=== PATIENT | female | born 1990 | race African-American/Black ===

== ENCOUNTER 2016-11-08 15:36 | Emergency (ER) | payer OTHER ==
[2016-11-08 15:57] VITALS: BP 118/74; PULSE 92; TEMP 98.4; BMI 30.2
--- NOTE | 2016-11-08 17:01 | PDOC ---
History of Present Illness - General Chief Complaint: Cold Symptoms Stated Complaint: COLD, CONGESTION Time Seen by Provider: 11/08/16 16:22 History Source: Patient Exam Limitations: No Limitations - History of Present Illness Initial Comments: 11/08/16 16:56 CC cough and congesion x 2 days; with 2 toddler sons who got her sick; no fever Severity: reports: mild Possible Cause: Yes: unknown cause (hx asthma wo meds at home) Associated Symptoms: reports: cough, nasal congestion, nasal drainage. denies: lightheadedness, muscle aches, sore throat, wheezing Past History - Past Medical History Allergies/Adverse Reactions: Allergies Allergy/AdvReac Type Severity Reaction Status Date / Time No Known Drug Allergies Allergy Verified 11/08/16 15:45 fresh fruit Allergy itchy Uncoded 11/08/16 15:45 throat Home Medications: Ambulatory Orders NK [No Known Home Medication] 12/23/15 Anemia: No Asthma: Yes Cancer: No Cardiac Disorders: No CVA: No COPD: No CHF: No Dementia: No Diabetes: No GI Disorders: Yes (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) Disorders: No HTN: No Hypercholesterolemia: No Liver Disease: No Suicide Attempt (Hx): No Seizures: No Thyroid Disease: No - Surgical History Abdominal Surgery: No Appendectomy: No Cardiac Surgery: No Cholecystectomy: No Lung Surgery: No Neurologic Surgery: No Orthopedic Surgery: No - Reproductive History (#): 3 Para: 1 Cervical CA: No Dysfunctional Uterine Bleeding: No Ectopic : No Endometrial CA: No Polycystic Ovaries: No Therapeutic (s) & number: No Tubal Ligation: No Spontaneous : 1 - Immunization History Td Vaccination: Yes Immunization Up to Date: Yes - Psycho/Social/Smoking Cessation Hx Anxiety: No Suicidal Ideation: No Smoking Status: Yes Smoking History: Current every day smoker Have you smoked in the past 12 months: Yes Number of Cigarettes Smoked Daily: 2 If you are a former smoker, when did you quit?: 07/2014 Information on smoking cessation initiated: No Hx Alcohol Use: No Drug/Substance Use Hx: No Substance Use Type: None Hx Substance Use Treatment: No Review of Systems - Review of Systems Constitutional: Yes: Symptoms Reported. No: Chills, Fever, Malaise HEENTM: Yes: Nose Congestion. No: Symptoms Reported, Throat Swelling Respiratory: Yes: Cough, Wheezing. No: SOB with Exertion, Stridor Cardiac (ROS): No: Symptoms Reported ABD/GI: No: Symptoms Reported : No: Symptoms Reported Musculoskeletal: No: Symptoms Reported Integumentary: No: Symptoms Reported Neurological: No: Symptoms reported Endocrine: No: Symptoms Reported *Physical Exam - Vital Signs Last Vital Signs Temp Pulse Resp BP Pulse Ox 98.4 F 92 H 18 118/74 98 11/08/16 15:40 11/08/16 15:40 11/08/16 15:40 11/08/16 15:40 11/08/16 15:40 - Physical Exam General Appearance: Yes: Appropriately Dressed. No: Apparent Distress HEENT: negative: TMs Normal, Pharynx Normal, Tonsillar Erythema, TM Bulging, TM Dull, TM Erythema Neck: positive: Supple. negative: Tender, Rigid, Lymphadenopathy (R), Lymphadenopathy (L) Respiratory/Chest: positive: Lungs Clear. negative: Accessory Muscle Use, Stridor, Wheezing Cardiovascular: positive: Regular Rhythm, Regular Rate, Murmur Medical Decision Making - Medical Decision Making 11/08/16 16:59 will prescribe albuterol for home; otherwise pt needs no meds *DC/Admit/Observation/Transfer Diagnosis at time of Disposition: History of asthma, Acute upper respiratory infection - Discharge Dispostion Disposition: HOME Condition at time of disposition: Stable Admit: No - Patient Instructions Additional Instructions: see local MD as needed; use albuterol as needed
== END 2016-11-08 17:07 | disposition home or self-care (01) ==
LOC: JERFT 15:36 → JER 15:36 → JERFT 17:07
DX: J06.9 Acute upper respiratory infection, unspecified (principal); J45.909 Unspecified asthma, uncomplicated
CPT/HCPCS: 99281-25

== ENCOUNTER 2017-06-30 14:10 | Emergency (ER) | payer OTHER ==
[2017-06-30 14:14] VITALS: BP 140/72; PULSE 95; TEMP 98.1; BMI 30.7
[2017-06-30] MEDS ORDERED: SULFAMETHOXAZOLE/TRIMETHOPRIM 800MG/160MG D.S. TABLET PO ONE (15:15)
[2017-06-30] MEDS ORDERED: SULFAMETHOXAZOLE/TRIMETHOPRIM 800MG/160MG D.S. TABLET ONE (15:18)
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
== END 2017-06-30 15:53 | disposition home or self-care (01) ==
LOC: JERFT 14:10
DX: T25.221A Burn of second degree of right foot, initial encounter (principal); X10.1XXA Contact with hot food, initial encounter; Y93.89 Activity, other specified; Y92.9 Unspecified place or not applicable; L03.031 Cellulitis of right toe
CPT/HCPCS: 99281-25

== ENCOUNTER 2017-10-07 11:10 | Emergency (ER) | payer OTHER ==
[2017-10-07 11:25] VITALS: BP 113/62; PULSE 77; TEMP 98; BMI 30.4
[2017-10-07] MEDS ORDERED: ALBUTEROL SO4 2.5/IPRATROPIUM 0.5 INH SOL 3 ML VIAL.NEB. NEB ONE ×2 (12:01→12:03)
--- NOTE | 2017-10-07 12:07 | PDOC ---
History of Present Illness - General Chief Complaint: Respiratory Stated Complaint: COUGH Time Seen by Provider: 10/07/17 11:41 History Source: Patient Exam Limitations: No Limitations - History of Present Illness Initial Comments: 10/07/17 12:06 My chief complaint: Productive cough, wheezing, nasal congestion History of present illness: She is a 27-year-old female with a history of asthma here today complaining of her duct of yellowish phlegm 2-3 days. Patient reports having some wheezing intermittently patient use albuterol pump once. Patient denies any shortness of breath presently. Patient also reports having slight sore throat. Patient denies any nasal congestion, shortness of breath presently or diarrhea or vomiting or fever. Patient denies any chance of . Patient's 2 children are sick with similar symptoms. Patient has never been hospitalized due to her asthma. Patient is not up-to-date within influenza vaccine. 10/07/17 19:03 Timing/Duration: intermittent (for 2-3 days ) Severity: mild Associated Symptoms: reports: cough (productive yellowish), other (wheezing, sob ) Past History - Past Medical History Allergies/Adverse Reactions: Allergies Allergy/AdvReac Type Severity Reaction Status Date / Time No Known Drug Allergies Allergy Verified 10/07/17 11:25 fresh fruit Allergy itchy Uncoded 10/07/17 11:25 throat Home Medications: Ambulatory Orders Albuterol Sulfate Inhaler - [Ventolin HFA Inhaler -] 2 inh PO Q4H PRN #1 inh MDD 6 10/07/17 Guaifenesin Dm [Mucinex Dm -] 2 each PO Q12H PRN #10 tab.er.12h 10/07/17 Anemia: No Asthma: Yes Cancer: No Cardiac Disorders: No CVA: No COPD: No CHF: No Dementia: No Diabetes: No GI Disorders: Yes (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) Disorders: No HTN: No Hypercholesterolemia: No Liver Disease: No Seizures: No Thyroid Disease: No Other medical history: MRSA FOOT - Surgical History Abdominal Surgery: No Appendectomy: No Cardiac Surgery: No Cholecystectomy: No Lung Surgery: No Neurologic Surgery: No Orthopedic Surgery: No - Reproductive History (#): 3 Para: 1 Cervical CA: No Dysfunctional Uterine Bleeding: No Ectopic : No Endometrial CA: No Polycystic Ovaries: No Therapeutic (s) & number: No Tubal Ligation: No Spontaneous : 1 - Immunization History Td Vaccination: Yes Immunization Up to Date: Yes - Suicide/Smoking/Psychosocial Hx Smoking Status: Yes Smoking History: Never smoked Have you smoked in the past 12 months: Yes Number of Cigarettes Smoked Daily: 5 If you are a former smoker, when did you quit?: 07/2014 Information on smoking cessation initiated: No Hx Alcohol Use: Yes (OCCASIONALLY) Drug/Substance Use Hx: Yes Substance Use Type: None Hx Substance Use Treatment: No Review of Systems - Review of Systems Able to Perform ROS?: Yes Constitutional: No: Symptoms Reported HEENTM: Yes: Nose Congestion Respiratory: Yes: Shortness of Breath, Wheezing, Productive cough (yellowish productive ). No: SOB with Exertion, SOB at Rest, Stridor Cardiac (ROS): No: Symptoms Reported ABD/GI: No: Symptoms Reported : No: Symptoms Reported Musculoskeletal: No: Symptoms Reported Integumentary: No: Symptoms Reported *Physical Exam - Vital Signs Last Vital Signs Temp Pulse Resp BP Pulse Ox 98.0 F 77 18 113/62 100 10/07/17 11:23 10/07/17 11:23 10/07/17 11:23 10/07/17 11:23 10/07/17 11:23 - Physical Exam General Appearance: Yes: Appropriately Dressed HEENT: positive: Normal ENT Inspection Neck: negative: Lymphadenopathy (R), Lymphadenopathy (L) Respiratory/Chest: positive: Wheezing (diffuse b/l expiratory ). negative: Chest Tender, Respiratory Distress, Accessory Muscle Use, Labored Respiration, Rapid RR Cardiovascular: positive: Regular Rhythm, Regular Rate, S1, S2 Integumentary: positive: Normal Color Neurologic: positive: Fully Oriented, Alert, Normal Response, Responsive Medical Decision Making - Medical Decision Making 10/07/17 19:05 She is a 27-year-old female with a history of asthma here today complaining of her duct of yellowish phlegm 2-3 days. Patient reports having some wheezing intermittently patient use albuterol pump once. Patient denies any shortness of breath presently. Patient also reports having slight sore throat. Patient denies any nasal congestion, shortness of breath presently or diarrhea or vomiting or fever. Patient denies any chance of . Patient's 2 children are sick with similar symptoms. Patient has never been hospitalized due to her asthma. Patient is not up-to-date within influenza vaccine. 12/08/17 19:03 asthmatic bronchitis PLAN duoneb now mucinex DM 1 cap q 12 hr prn cough # 10 tabs ventolin HFA 2 puffs every 4 hrs prn wheezing/sob 10/07/17 19:05 *DC/Admit/Observation/Transfer Diagnosis at time of Disposition: Acute asthmatic bronchitis - Discharge Dispostion Disposition: HOME Condition at time of disposition: Stable - Prescriptions Prescriptions: Albuterol Sulfate Inhaler - [Ventolin HFA Inhaler -] 2 inh PO Q4H PRN #1 inh MDD 6 PRN Reason: Short Of Breath/Wheezing Guaifenesin Dm [Mucinex Dm -] 2 each PO Q12H PRN #10 tab.er.12h PRN Reason: Cough - Referrals - Patient Instructions Additional Instructions: Drink A lot of fluids and rest Follow-up with your primary care provider within the next few days Return to emergency room if any difficulty breathing or worsening symptoms Patient voiced understanding of discharge instructions and all questions were answered And thank you for choosing [facility] emergency room for your medical needs today - Post Discharge Activity
== END 2017-10-07 12:55 | disposition home or self-care (01) ==
LOC: JERFT 11:10
PROC: 3E0F7GC Introduction of Other Therapeutic Substance into Respiratory Tract, Via Natural or Artificial Opening (ICD-10-PCS; principal; 2017-10-07)
DX: J45.909 Unspecified asthma, uncomplicated (principal)
CPT/HCPCS: 94640; 99281-25

== ENCOUNTER 2019-03-08 15:59 | Emergency (ER) | payer OTHER ==
[2019-03-08 16:09] VITALS: BMI 28.5
--- NOTE | 2019-03-08 16:10 | PDOC ---
Rapid Medical Evaluation Chief Complaint: Vaginal Bleeding Time Seen by Provider: 03/08/19 16:06 Medical Evaluation: Allergies Allergy/AdvReac Type Severity Reaction Status Date / Time No Known Drug Allergies Allergy Verified 10/07/17 11:25 fresh fruit Allergy itchy Uncoded 10/07/17 11:25 throat 03/08/19 16:07 I have performed a brief in-person evaluation of this patient. The patient presents with a chief complaint of: abdominal pains with vaginal bleeding which started as vaginal spotting 3 days ago and now worsen yesterday soaking 4 pads per day. Pt report LMP 02/12. report h/o irregular menses Pertinent physical exam findings:mild suprapubic discomfort. A&O x 3 I have ordered the following: CBC, CMP, t&s, ua, UCx The patient will proceed to the ED for further evaluation. Discharge Disposition - Diagnosis DUB (dysfunctional uterine bleeding) Abdominal pain Qualifiers: Abdominal location: lower abdomen, unspecified Qualified Code(s): R10.30 - Lower abdominal pain, unspecified - Discharge Dispostion Condition at time of disposition: Stable - Referrals - Patient Instructions - Post Discharge Activity
[2019-03-08 16:38] LABS: BASO % 0.4 % (0-2.0); EOS % 1.7 % (0-4.5); HEMATOCRIT 44.7 % (32.4-45.2); HEMOGLOBIN 14.8 GM/dL (10.7-15.3); LYMPH % 43.4 % (8-40); MCH 28.7 pg (25.7-33.7); MCHC 33.2 g/dl (32.0-36.0); MEAN CELL VOLUME 86.4 fl (80-96); MONO % 9.6 % (3.8-10.2); NEUT % 44.9 % (42.8-82.8); PLATELET COUNT 291 K/MM3 (134-434); RBC 5.17 M/mm3 (3.60-5.2); RDW 13.8 % (11.6-15.6); WHITE BLOOD COUNT 7.2 K/mm3 (4.0-10.0)
[2019-03-08 17:01] LABS: ALBUMIN 3.6 g/dl (3.4-5.0); BILIRUBIN,TOTAL 0.6 mg/dL (0.2-1); CALCIUM 9.5 mg/dL (8.5-10.1); CREATININE 0.6 mg/dL (0.55-1.3); POTASSIUM 3.9 mmol/L (3.5-5.1); TOT PROT 7.1 g/dl (6.4-8.2)
--- NOTE | 2019-03-08 17:28 | PDOC ---
History of Present Illness - General Chief Complaint: Vaginal Bleeding Stated Complaint: ABD PAIN/ VAGINAL BLEED/ LOWER BACK PAIN Time Seen by Provider: 03/08/19 16:06 History Source: Patient Exam Limitations: No Limitations - History of Present Illness Travel History: No Initial Comments: 03/08/19 17:04 28-year-old female presents emergency room with complaints of lower abdominal cramping vaginal bleeding for the past 2 days associated low back pain. Patient denies fever, chills, abdominal distention history of irregular menses, nausea or vomiting. Patient also denies any bowel changes or vaginal discharge Timing/Duration: reports: constant Quality: reports: mild, cramping Abdominal Pain Onset Location: reports: suprapubic Pain Radiation: reports: back Activities at Onset: reports: none Aggravating Factors: improves with: None Alleviating Factors: improves with: None Past History - Travel Traveled outside of the country in the last 30 days: No Close contact w/someone who was outside of country & ill: No - Past Medical History Allergies/Adverse Reactions: Allergies Allergy/AdvReac Type Severity Reaction Status Date / Time No Known Drug Allergies Allergy Verified 03/08/19 16:09 fresh fruit Allergy itchy Uncoded 03/08/19 16:09 throat Home Medications: Ambulatory Orders Albuterol Sulfate Inhaler - [Ventolin HFA Inhaler -] 2 inh PO Q4H PRN #1 inh MDD 6 10/07/17 Guaifenesin Dm [Mucinex Dm -] 2 each PO Q12H PRN #10 tab.er.12h 10/07/17 Anemia: No Asthma: Yes Cancer: No Cardiac Disorders: No CVA: No COPD: No CHF: No Dementia: No Diabetes: No GI Disorders: Yes (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) Disorders: No HTN: No Hypercholesterolemia: No Liver Disease: No Seizures: No Thyroid Disease: No Other medical history: MRSA FOOT - Surgical History Abdominal Surgery: No Appendectomy: No Cardiac Surgery: No Cholecystectomy: No Lung Surgery: No Neurologic Surgery: No Orthopedic Surgery: No - Reproductive History (#): 3 Para: 1 Cervical CA: No Dysfunctional Uterine Bleeding: No Ectopic : No Endometrial CA: No Polycystic Ovaries: No Therapeutic (s) & number: No Tubal Ligation: No Spontaneous : 1 - Immunization History Td Vaccination: Yes Immunization Up to Date: Yes - Suicide/Smoking/Psychosocial Hx Smoking Status: Yes Smoking History: Current every day smoker Have you smoked in the past 12 months: Yes Number of Cigarettes Smoked Daily: 3 If you are a former smoker, when did you quit?: 07/2014 Information on smoking cessation initiated: No Hx Alcohol Use: Yes Drug/Substance Use Hx: Yes Substance Use Type: None Hx Substance Use Treatment: No Patient Lives Alone: No Lives with/in: spouse/SO Review of Systems - Review of Systems Able to Perform ROS?: Yes Is the patient limited Afghan proficient: No HEENTM: No: Symptoms Reported Respiratory: No: Symptoms reported Cardiac (ROS): No: Symptoms Reported ABD/GI: Yes: Abdominal cramping : Yes: Discharge Musculoskeletal: Yes: Back Pain (low mid) Integumentary: No: Symptoms Reported Neurological: No: Symptoms reported Hematologic/Lymphatic: No: Symptoms Reported *Physical Exam - Vital Signs Last Vital Signs Temp Pulse Resp BP Pulse Ox 97.8 F 82 16 114/82 100 03/08/19 16:05 03/08/19 16:05 03/08/19 16:05 03/08/19 16:05 03/08/19 16:05 - Physical Exam General Appearance: Yes: Nourished, Appropriately Dressed. No: Apparent Distress HEENT: negative: Pale Conjunctivae Neck: positive: Supple Respiratory/Chest: positive: Lungs Clear, Normal Breath Sounds. negative: Respiratory Distress, Accessory Muscle Use Cardiovascular: positive: Regular Rhythm, Regular Rate. negative: Murmur Female Pelvic Exam: positive: vaginal bleeding (dark red no clots). negative: CMT, adnexal tenderness Gastrointestinal/Abdominal: positive: Normal Bowel Sounds, Soft, Tenderness ( mild midsuprapubic). negative: Distended Musculoskeletal: negative: CVA Tenderness Extremity: positive: Normal Inspection Integumentary: positive: Normal Color, Warm, Moist Neurologic: positive: Motor Strength 5/5 (ambulatory) ED Treatment Course - LABORATORY CBC & Chemistry Diagram: 03/08/19 16:22 03/08/19 16:22 - ADDITIONAL ORDERS Additional order review: Laboratory Results 03/08/19 16:22 Sodium 138 Potassium 3.9 Chloride 106 Carbon Dioxide 27 Anion Gap 6 L BUN 7 Creatinine 0.6 Est GFR (CKD-EPI)AfAm 142.76 Est GFR (CKD-EPI)NonAf 123.17 Random Glucose 88 Calcium 9.5 Total Bilirubin 0.6 AST 14 L ALT 19 Alkaline Phosphatase 69 Total Protein 7.1 Albumin 3.6 03/08/19 16:22 RBC 5.17 MCV 86.4 MCHC 33.2 RDW 13.8 MPV 9.0 D Neutrophils % 44.9 D Lymphocytes % 43.4 H D Monocytes % 9.6 Eosinophils % 1.7 Basophils % 0.4 Medical Decision Making - Medical Decision Making 03/08/19 17:05 Chief complaint vaginal bleeding with lower abdominal pain rating now to her back for the past 2 days. Patient states LMP was 3 weeks ago but has had some intermittent breakthrough bleeding due to recent removal of IUD and then NuvaRing which was also recently removed Exam: Patient with suprapubic discomfort on exam. Noted abdominal distention dark red blood noted in vault Plan: Urine urine and ultrasound ordered 03/08/19 18:44 Laboratory Tests 03/08/19 03/08/19 03/08/19 16:22 16:22 16:24 WBC 7.2 Hgb 14.8 Hct 44.7 D Neutrophils % 44.9 D Lymphocytes % 43.4 H D Sodium 138 Potassium 3.9 Chloride 106 Carbon Dioxide 27 Anion Gap 6 L Creatinine 0.6 Calcium 9.5 AST 14 L ALT 19 Alkaline Phosphatase 69 Total Protein 7.1 Albumin 3.6 Urine Blood 2+ H Ur Leukocyte Esterase Negative Urine HCG, Qual Negative Pt ordered for u/s *DC/Admit/Observation/Transfer Diagnosis at time of Disposition: DUB (dysfunctional uterine bleeding) Abdominal pain Qualifiers: Abdominal location: lower abdomen, unspecified Qualified Code(s): R10.30 - Lower abdominal pain, unspecified - Discharge Dispostion Condition at time of disposition: Stable - Referrals Referrals: Natalya Rodgers MD [Primary Care Provider] - - Patient Instructions - Post Discharge Activity
[2019-03-08 18:00] LABS: URINE APPEARANCE CLEAR; URINE BILIRUBIN NEGATIVE (NEGATIVE); URINE COLOR YELLOW; URINE GLUCOSE (UA) NEGATIVE (NEGATIVE); URINE KETONE NEGATIVE (NEGATIVE)
[2019-03-08 18:01] LABS: URINE LEUK ESTERASE NEGATIVE (NEGATIVE); URINE NITRITE NEGATIVE (NEGATIVE); URINE PROTEIN NEGATIVE (NEGATIVE)
[2019-03-08 18:08] LABS: HCG,QUALITATIVE URINE NEGATIVE
--- NOTE | 2019-03-08 19:08 | PDOC ---
*Physical Exam - Vital Signs Last Vital Signs Temp Pulse Resp BP Pulse Ox 97.8 F 82 16 114/82 100 03/08/19 16:05 03/08/19 16:05 03/08/19 16:05 03/08/19 16:05 03/08/19 16:05 - Physical Exam General Appearance: Yes: Appropriately Dressed. No: Apparent Distress Respiratory/Chest: positive: Lungs Clear, Normal Breath Sounds. negative: Respiratory Distress, Accessory Muscle Use Cardiovascular: positive: Regular Rhythm, Regular Rate. negative: Murmur Gastrointestinal/Abdominal: positive: Tenderness (mild suprapubic) ED Treatment Course - LABORATORY CBC & Chemistry Diagram: 03/08/19 16:22 03/08/19 16:22 - ADDITIONAL ORDERS Additional order review: Laboratory Results 03/08/19 03/08/19 16:24 16:22 Sodium 138 Potassium 3.9 Chloride 106 Carbon Dioxide 27 Anion Gap 6 L BUN 7 Creatinine 0.6 Est GFR (CKD-EPI)AfAm 142.76 Est GFR (CKD-EPI)NonAf 123.17 Random Glucose 88 Calcium 9.5 Total Bilirubin 0.6 AST 14 L ALT 19 Alkaline Phosphatase 69 Total Protein 7.1 Albumin 3.6 Urine Color Yellow Urine Appearance Clear Urine pH 7.0 Ur Specific [place] 1.016 Urine Protein Negative Urine Glucose (UA) Negative Urine Ketones Negative Urine Blood 2+ H Urine Nitrite Negative Urine Bilirubin Negative Urine Urobilinogen 1.0 Ur Leukocyte Esterase Negative Urine HCG, Qual Negative 03/08/19 16:22 RBC 5.17 MCV 86.4 MCHC 33.2 RDW 13.8 MPV 9.0 D Neutrophils % 44.9 D Lymphocytes % 43.4 H D Monocytes % 9.6 Eosinophils % 1.7 Basophils % 0.4 Progress Note - Progress Note Progress Note: Received signout from nurse practitioner Gilma. Briefly this is a 28-year-old woman presents emergency Department with lower abdominal cramping and vaginal bleeding for 2 days. Patient's LMP was approximately 3 weeks ago and had some intermittent bleeding after removal of IUD and Novarel. Laboratory testing is unremarkable. Urine testing is negative. Urinalysis notable for 2+ blood is likely from vaginal bleeding. Ultrasound pending Medical Decision Making - Medical Decision Making 03/08/19 19:40 Ultrasound as read by Dr. Falk: Unremarkable examination. Uterus and both ovaries appear unremarkable. Normal thickness of endometrial stripe. There is no free fluid in the cul-de-sac. I will discharge the patient home to follow-up with her MARBLE SETTER for continued evaluation of vaginal bleeding and potential change in control method. *DC/Admit/Observation/Transfer Diagnosis at time of Disposition: DUB (dysfunctional uterine bleeding) Abdominal pain Qualifiers: Abdominal location: lower abdomen, unspecified Qualified Code(s): R10.30 - Lower abdominal pain, unspecified - Discharge Dispostion Disposition: HOME Condition at time of disposition: Stable - Referrals Referrals: Natalya Rodgers MD [Primary Care Provider] - - Patient Instructions Additional Instructions: Follow-up with your PLANT SUPERVISOR for continued evaluation. Avoid sexual intercourse until pain and bleeding stopped. Return to emergency department for any new or worsening symptoms or for vaginal bleeding requiring more than 2 pads per hour. Thank you very much for choosing us provider emergent health care needs. - Post Discharge Activity
--- NOTE | 2019-03-08 19:53 | PDOC ---
*Physical Exam - Vital Signs Last Vital Signs Temp Pulse Resp BP Pulse Ox 97.8 F 82 16 114/82 100 03/08/19 16:05 03/08/19 16:05 03/08/19 16:05 03/08/19 16:05 03/08/19 16:05 ED Treatment Course - LABORATORY CBC & Chemistry Diagram: 03/08/19 16:22 03/08/19 16:22 - ADDITIONAL ORDERS Additional order review: Laboratory Results 03/08/19 03/08/19 03/08/19 16:24 16:23 16:22 Sodium 138 Potassium 3.9 Chloride 106 Carbon Dioxide 27 Anion Gap 6 L BUN 7 Creatinine 0.6 Est GFR (CKD-EPI)AfAm 142.76 Est GFR (CKD-EPI)NonAf 123.17 Random Glucose 88 Calcium 9.5 Total Bilirubin 0.6 AST 14 L ALT 19 Alkaline Phosphatase 69 Total Protein 7.1 Albumin 3.6 Urine Color Yellow Urine Appearance Clear Urine pH 7.0 Ur Specific [place] 1.016 Urine Protein Negative Urine Glucose (UA) Negative Urine Ketones Negative Urine Blood 2+ H Urine Nitrite Negative Urine Bilirubin Negative Urine Urobilinogen 1.0 Ur Leukocyte Esterase Negative Urine HCG, Qual Negative Blood Type B POSITIVE Antibody Screen Negative 03/08/19 16:22 RBC 5.17 MCV 86.4 MCHC 33.2 RDW 13.8 MPV 9.0 D Neutrophils % 44.9 D Lymphocytes % 43.4 H D Monocytes % 9.6 Eosinophils % 1.7 Basophils % 0.4 Medical Decision Making - Medical Decision Making 03/08/19 19:52 Case discussed with SPECIAL PROCEDURES NURSE Elvin Agree with assessment and plan *DC/Admit/Observation/Transfer Diagnosis at time of Disposition: DUB (dysfunctional uterine bleeding) Abdominal pain Qualifiers: Abdominal location: lower abdomen, unspecified Qualified Code(s): R10.30 - Lower abdominal pain, unspecified - Discharge Dispostion Disposition: HOME Condition at time of disposition: Stable - Referrals Referrals: Natalya Rodgers MD [Primary Care Provider] - - Patient Instructions Additional Instructions: Follow-up with your PHYSICIAN ASSISTANT [facility]IMARY CARE for continued evaluation. Avoid sexual intercourse until pain and bleeding stopped. Return to emergency department for any new or worsening symptoms or for vaginal bleeding requiring more than 2 pads per hour. Thank you very much for choosing us provider emergent health care needs. - Post Discharge Activity
[2019-03-08 20:07] VITALS: BP 110/78; PULSE 66; TEMP 98.5
== END 2019-03-08 20:07 | disposition home or self-care (01) ==
LOC: JER 15:59
DX: N93.8 Other specified abnormal uterine and vaginal bleeding (principal)
CPT/HCPCS: 36415; 76830-TC; 80053; 81003; 84703; 85025; 86850; 86900; 86901; 87086; 99282-25

== ENCOUNTER 2019-07-07 13:28 | Emergency (ER) | payer OTHER | END 2019-07-07 13:55 | disposition left against medical advice (07) | LOC: JERFT 13:28 ==

== ENCOUNTER 2019-11-06 10:45 | Emergency (ER) | payer OTHER ==
[2019-11-06 11:07] VITALS: BP 115/67; PULSE 66; TEMP 98.2; BMI 28.9
--- NOTE | 2019-11-06 11:45 | PDOC ---
History of Present Illness - General Chief Complaint: Cold Symptoms Stated Complaint: COLD SYMPTOMS/RT KNEE PAIN Time Seen by Provider: 11/06/19 11:08 History Source: Patient Exam Limitations: No Limitations - History of Present Illness Initial Comments: 11/06/19 11:30 29-year-old female presents to ED with complaint of dry hacking cough for the past 2 days associated with sore throat. Patient states he smokes cigarettes on a daily basis and has history asthma but denies any wheezing or difficulty breathing. Patient is complaining of left knee pain since Tuesday. Patient states was out dancing and squatting often in which she states "over the top" patient denies previous injury to affected area and now complains of pain to the medial aspect of left knee worsened with ambulation and flexion. Timing/Duration: reports: other Severity: reports: mild Modifying Factors: improves with: coughing Associated Symptoms: reports: cough, sore throat Past History - Travel Traveled outside of the country in the last 30 days: No Close contact w/someone who was outside of country & ill: No - Past Medical History Allergies/Adverse Reactions: Allergies Allergy/AdvReac Type Severity Reaction Status Date / Time No Known Drug Allergies Allergy Verified 11/06/19 11:02 fresh fruit Allergy itchy Uncoded 11/06/19 11:02 throat Home Medications: Ambulatory Orders Baclofen 10 mg PO DAILY 11/06/19 Ergocalciferol (Vitamin D2) [Vitamin D2] 2,000 unit PO DAILY 11/06/19 Oxycodone HCl/Acetaminophen [Percocet 10-325 mg Tablet] 1 each PO TID PRN Anemia: No Asthma: Yes Cancer: No Cardiac Disorders: No CVA: No COPD: No CHF: No Dementia: No Diabetes: No GI Disorders: Yes (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) Disorders: No HTN: No Hypercholesterolemia: No Liver Disease: No Seizures: No Thyroid Disease: No - Surgical History Abdominal Surgery: No Appendectomy: No Cardiac Surgery: No Cholecystectomy: No Lung Surgery: No Neurologic Surgery: No Orthopedic Surgery: No - Reproductive History (#): 3 Para: 1 Cervical CA: No Dysfunctional Uterine Bleeding: No Ectopic : No Endometrial CA: No Polycystic Ovaries: No Therapeutic (s) & number: No Tubal Ligation: No Spontaneous : 1 - Immunization History Td Vaccination: Yes Immunization Up to Date: Yes - Psycho Social/Smoking Cessation Hx Smoking Status: Yes Smoking History: Current every day smoker Have you smoked in the past 12 months: Yes Number of Cigarettes Smoked Daily: 2 If you are a former smoker, when did you quit?: 07/2014 Information on smoking cessation initiated: No Hx Alcohol Use: No Drug/Substance Use Hx: No Substance Use Type: None Hx Substance Use Treatment: No Patient Lives Alone: No Lives with/in: parents Respiratory Specific PMHX - Complaint Specific PMHX Hx Asthma: Yes Hx Smoking Exposure: Yes Review of Systems - Review of Systems Able to Perform ROS?: Yes Constitutional: No: Symptoms Reported HEENTM: Yes: Throat Pain Respiratory: Yes: Cough. No: Shortness of Breath, Wheezing, Productive cough Cardiac (ROS): No: Symptoms Reported ABD/GI: No: Symptoms Reported : No: Symptoms Reported Musculoskeletal: Yes: Joint Pain (Left knee) Integumentary: No: Symptoms Reported Neurological: No: Symptoms reported *Physical Exam - Vital Signs Last Vital Signs Temp Pulse Resp BP Pulse Ox 98.2 F 66 18 115/67 99 11/06/19 11:05 11/06/19 11:05 11/06/19 11:05 11/06/19 11:05 11/06/19 11:05 - Physical Exam General Appearance: Yes: Nourished, Appropriately Dressed. No: Apparent Distress HEENT: positive: EOMI, OLINDA, TMs Normal, Pharyngeal Erythema (No exudate no petechiae), Tonsillar Exudate (1+) Neck: positive: Normal Thyroid, Supple Respiratory/Chest: positive: Lungs Clear, Normal Breath Sounds. negative: Respiratory Distress, Accessory Muscle Use Cardiovascular: positive: Regular Rhythm, Regular Rate. negative: Murmur Extremity: positive: Normal Inspection, Normal Range of Motion, Tender (Left meniscus). negative: Swelling, Erythema Integumentary: positive: Normal Color, Warm, Moist Neurologic: positive: Motor Strength 5/5 (Ambulatory) Medical Decision Making - Medical Decision Making 11/06/19 11:44 Chief complaint: Left knee pain after dancing on Tuesday along with URI symptoms. Exam: Erythema to the soft palate and posterior pharynx tenderness to the left meniscus. Plan: Rapid strep. Discharge home with [facility] for treatment of bronchitis if negative Motrin recommended for inflammation along with resting elevation and avoid movements for left knee healing process 11/06/19 12:02 Laboratory Tests 11/06/19 11:32 Group A Strep Rapid Negative Patient be treated with [facility] Rx sent for Motrin Discharge - Discharge Information Problems reviewed: Yes Clinical Impression/Diagnosis: Left knee pain, Bronchitis Condition: Good Disposition: HOME - Follow up/Referral - Patient Discharge Instructions Patient Printed Discharge Instructions: DI for Acute Bronchitis Additional Instructions: , Please take medication as prescribed until completed. Take Motrin for any pain elevated ice and avoid movements that trigger discomfort. If symptoms continue greater than 1 week please follow-up with your orthopedist. Also avoid smoking - Post Discharge Activity
== END 2019-11-06 12:08 | disposition home or self-care (01) ==
LOC: JERFT 10:45
DX: J20.9 Acute bronchitis, unspecified (principal); M25.562 Pain in left knee; Z91.018 Allergy to other foods; F17.210 Nicotine dependence, cigarettes, uncomplicated; Z87.09 Personal history of other diseases of the respiratory system
CPT/HCPCS: 87070; 87880; 99281-25

== ENCOUNTER 2020-10-06 06:25 | Day surgery (SDC) | payer OTHER ==
[2020-10-02 13:49] VITALS: BMI 25.7
[2020-10-06] MEDS ORDERED: BUPIVACAINE HCL/EPINEPHRINE/PF 30 ML VIAL IJ ONE (07:08)
[2020-10-06] MEDS ORDERED: oxyCODONE HCL 5 MG TABLET PO PRN ×2 (07:21→07:23)
[2020-10-06] MEDS ORDERED: ACETAMINOPHEN 325 MG TABLET (FP) PO PRN (07:21)
[2020-10-06] MEDS ORDERED: PROPOFOL 20 ML ONE ×2 (07:28)
[2020-10-06] MEDS ORDERED: SUCCINYLCHOLINE CHLORIDE 200 MG/10 ML SYRINGE ONE ×2 (07:28→08:47)
[2020-10-06] MEDS ORDERED: MIDAZOLAM HCL 2 MG/2 ML SINGLE DOSE VIAL ONE (07:29)
[2020-10-06] MEDS ORDERED: BUPIVACAINE HCL/PF 0.5% (5MG/ML) 10 ML VIAL ONE (07:29)
[2020-10-06] MEDS ORDERED: ONDANSETRON 4 MG/2 ML VIAL ONE ×2 (07:30→07:48)
[2020-10-06] MEDS ORDERED: ceFAZolin SODIUM 1 GM VIAL ONE (07:30)
[2020-10-06] MEDS ORDERED: DEXAMETHASONE SOD PHOSPHATE 4 MG/1 ML VIAL ONE ×2 (07:30→07:48)
[2020-10-06] MEDS ORDERED: MORPHINE 5 MG/10 ML AMP - FOR COMPOUNDING USE ONLY ONE (07:32)
[2020-10-06] MEDS ORDERED: KETOROLAC TROMETHAMINE 30 MG/1 ML VIAL ONE (07:48)
[2020-10-06] MEDS ORDERED: DESFLURANE GAS 240 ML BOTTLE IH ONE (08:14)
[2020-10-06] MEDS ORDERED: ONDANSETRON 4 MG/2 ML VIAL IVPUSH PRN (09:24)
[2020-10-06] MEDS ORDERED: LACTATED RINGERS SOLUTION 1,000 ML IV SCH (09:30)
[2020-10-06] MEDS ORDERED: oxyCODONE HCL 5 MG TABLET ONE (09:56)
[2020-10-06 10:46] VITALS: BP 119/74; PULSE 63; TEMP 98.2
== END 2020-10-06 10:46 | disposition home or self-care (01) ==
LOC: FASU 06:25
PROVIDERS: ATTEND Orthopaedic Surgery
PROC: 0SBD4ZZ Excision of Left Knee Joint, Percutaneous Endoscopic Approach (ICD-10-PCS; 2020-10-06)
PROC: 0SBD4ZZ Excision of Left Knee Joint, Percutaneous Endoscopic Approach (ICD-10-PCS; principal; 2020-10-06 08:01)
DX: S83.242A Other tear of medial meniscus, current injury, left knee, initial encounter (principal); X58.XXXA Exposure to other specified factors, initial encounter; Y93.9 Activity, unspecified; Y92.9 Unspecified place or not applicable; Y99.9 Unspecified external cause status; M23.301 Other meniscus derangements, unspecified lateral meniscus, left knee; M94.262 Chondromalacia, left knee; M65.862 Other synovitis and tenosynovitis, left lower leg
CPT/HCPCS: 81025; 88304-TC; 94760

== ENCOUNTER 2020-11-02 10:54 | Emergency (ER) | payer OTHER | END 2020-11-02 12:42 | disposition home or self-care (01) | LOC: JVIRT 10:54 | DX: U07.1 COVID-19 (principal) | CPT/HCPCS: C9803; G2251-GT; Q3014-GT; U0003 ==

== ENCOUNTER 2021-03-05 11:13 | Emergency (ER) | payer OTHER ==
[2021-03-05 11:24] VITALS: BP 120/82; PULSE 65; TEMP 98.4; BMI 28.3
[2021-03-05] MEDS ORDERED: morphine CARPU-JECT 4 MG/1 ML DISP.SYRIN IVPUSH ONE (11:41)
[2021-03-05] MEDS ORDERED: SODIUM CHLORIDE 1,000 ML IV STA (11:41)
[2021-03-05] MEDS ORDERED: ONDANSETRON 4 MG/2 ML VIAL IVPUSH ONE (11:41)
[2021-03-05] MEDS ORDERED: morphine SULFATE 4 MG/ML VIAL ONE (12:04)
[2021-03-05] MEDS ORDERED: ONDANSETRON 4 MG/2 ML VIAL ONE (12:04)
[2021-03-05 12:06] LABS: BASO % 0.7 % (0-2.0); EOS % 0.8 % (0-4.5); HEMATOCRIT 41.4 % (32.4-45.2); LYMPH % 42.7 % (8-40); MCH 29.3 pg (25.7-33.7); MCHC 33.7 g/dl (32.0-36.0); MEAN PLT VOLUME 8.9 fl (7.5-11.1); MONO % 9.1 % (3.8-10.2); NEUT % 46.7 % (42.8-82.8); PLATELET COUNT 309 K/MM3 (134-434); RBC 4.76 M/mm3 (3.60-5.2); WHITE BLOOD COUNT 5.6 K/mm3 (4.0-10.0)
[2021-03-05 12:14] LABS: URINE APPEARANCE CLEAR; URINE BILIRUBIN NEGATIVE (NEGATIVE); URINE COLOR YELLOW; URINE GLUCOSE (UA) NEGATIVE (NEGATIVE); URINE KETONE NEGATIVE (NEGATIVE); URINE LEUK ESTERASE NEGATIVE (NEGATIVE); URINE NITRITE NEGATIVE (NEGATIVE); URINE PROTEIN NEGATIVE (NEGATIVE)
[2021-03-05 12:16] LABS: HCG,QUALITATIVE URINE Negative
[2021-03-05 12:35] LABS: ALBUMIN 3.9 g/dl (3.4-5.0); BLOOD UREA NITROGEN 10.4 mg/dL (7-18)
[2021-03-05 12:38] LABS: CREATININE 0.7 mg/dL (0.55-1.3)
[2021-03-05 12:39] LABS: BILIRUBIN,TOTAL 0.4 mg/dL (0.2-1); TOT PROT 7.5 g/dl (6.4-8.2)
== END 2021-03-05 15:26 | disposition home or self-care (01) ==
LOC: JERFT 11:13
PROC: 3E033NZ Introduction of Analgesics, Hypnotics, Sedatives into Peripheral Vein, Percutaneous Approach (ICD-10-PCS; principal; 2021-03-05)
PROC: 3E033GC Introduction of Other Therapeutic Substance into Peripheral Vein, Percutaneous Approach (ICD-10-PCS; 2021-03-05)
PROC: 3E0337Z Introduction of Electrolytic and Water Balance Substance into Peripheral Vein, Percutaneous Approach (ICD-10-PCS; 2021-03-05)
DX: R10.11 Right upper quadrant pain (principal)
CPT/HCPCS: 36415; 71046-TC-FY; 76705-TC; 80053; 81003; 83690; 84703; 85025; 87086; 96361; 96374; 96375; 99285-25

== ENCOUNTER 2021-04-26 07:59 | Emergency (ER) | payer OTHER ==
[2021-04-26 08:27] VITALS: BP 114/79; PULSE 98; TEMP 98; BMI 27.5
[2021-04-26] MEDS ORDERED: KETOROLAC TROMETHAMINE 15 MG/ML VIAL IM ONE (08:48)
[2021-04-26] MEDS ORDERED: DEXAMETHASONE 4 MG TABLET (FP) PO ONE (08:55)
[2021-04-26] MEDS ORDERED: KETOROLAC TROMETHAMINE 60 MG/2 ML VIAL IM ONE (09:21)
[2021-04-26] MEDS ORDERED: PENICILLIN G BENZATHINE 1,200,000 UNIT/2 ML PFS IM ONE ×2 (10:15→10:22)
[2021-04-26] MEDS ORDERED: DEXAMETHASONE SOD PHOSPHATE 10 MG/1 ML VIAL ONE (10:21)
[2021-04-26] MEDS ORDERED: KETOROLAC TROMETHAMINE 30 MG/1 ML VIAL ONE (10:21)
== END 2021-04-26 11:32 | disposition home or self-care (01) ==
LOC: JER 07:59
PROC: 3E0233Z Introduction of Anti-inflammatory into Muscle, Percutaneous Approach (ICD-10-PCS; principal; 2021-04-26)
PROC: 3E02329 Introduction of Other Anti-infective into Muscle, Percutaneous Approach (ICD-10-PCS; 2021-04-26)
DX: J02.9 Acute pharyngitis, unspecified (principal)
CPT/HCPCS: 84703; 87070; 87077; 96372; 99284-25

== ENCOUNTER 2022-05-10 17:45 | Emergency (ER) | payer OTHER ==
[2022-05-10 18:12] VITALS: BP 119/72; PULSE 68; TEMP 98.2; BMI 27.3
== END 2022-05-10 20:29 | disposition home or self-care (01) ==
LOC: JERFT 17:45
DX: S00.06XA Insect bite (nonvenomous) of scalp, initial encounter (principal); W57.XXXA Bitten or stung by nonvenomous insect and other nonvenomous arthropods, initial encounter
CPT/HCPCS: 99281-25

== ENCOUNTER 2023-02-28 13:35 | Emergency (ER) | payer OTHER ==
[2023-02-28 13:48] VITALS: BP 145/66; PULSE 68; RESP 18; TEMP 98.8; BMI 27.2
[2023-02-28] MEDS ORDERED: DIPHTH,PERTUSS(ACELL),TET 0.5 ML DISP.SYRIN IM ONE ×2 (15:16→15:38)
== END 2023-02-28 16:12 | disposition home or self-care (01) ==
LOC: JERFT 13:35 → JER 13:35 → JERFT 16:12
PROC: 3E0234Z Introduction of Serum, Toxoid and Vaccine into Muscle, Percutaneous Approach (ICD-10-PCS; principal; 2023-02-28)
DX: S60.812A Abrasion of left wrist, initial encounter (principal); M25.532 Pain in left wrist; M25.511 Pain in right shoulder; Y04.0XXA Assault by unarmed brawl or fight, initial encounter
CPT/HCPCS: 73110-TC-LT-FY; 73130-TC-LT-FY; 90471; 90715; 99283-25

== ENCOUNTER 2023-10-17 13:33 | Emergency (ER) | payer OTHER ==
[2023-10-17 13:57] VITALS: BP 112/75; PULSE 80; RESP 18; TEMP 98.2; BMI 28.9
[2023-10-17 15:18] LABS: EPI CELLS 13 /uL (0-25.1); HYALINE CASTS 0 /uL (0-3.1); PH,URINE 5.5 (5.0-8.0); URINE APPEARANCE CLEAR; URINE BACTERIA 106 /uL (0-1359); URINE BILIRUBIN NEGATIVE (NEGATIVE); URINE COLOR YELLOW; URINE GLUCOSE (UA) NEGATIVE (NEGATIVE); URINE KETONE NEGATIVE (NEGATIVE); URINE LEUK ESTERASE TRACE (NEGATIVE); URINE NITRITE NEGATIVE (NEGATIVE); URINE PROTEIN NEGATIVE (NEGATIVE); URINE RBC 6 /uL (0-23.9); URINE UROBILINOGEN 0.2 mg/dL (0.2-1.0); URINE WBC 11 /uL (0-25.8)
== END 2023-10-17 19:03 | disposition home or self-care (01) ==
LOC: JER 13:33
DX: O26.851 Spotting complicating pregnancy, first trimester (principal); Z3A.01 Less than 8 weeks gestation of pregnancy
CPT/HCPCS: 76817-TC; 81003; 84703; 87086; 99284-25

== ENCOUNTER 2023-10-19 12:47 | Emergency (ER) | payer OTHER ==
[2023-10-19 13:14] VITALS: BP 120/79; PULSE 86; RESP 18; TEMP 98.4; BMI 27.9
[2023-10-19 15:19] LABS: HEMATOCRIT 42.6 % (32.4-45.2); HEMOGLOBIN 14.2 GM/dL (10.7-15.3); MCH 28.7 pg (25.7-33.7); MCHC 33.2 g/dl (32.0-36.0); MEAN CELL VOLUME 86.3 fl (80-96); MEAN PLT VOLUME 9.4 fl (7.5-11.1); PLATELET COUNT 359 10^3/uL (134-434); RBC 4.94 M/mm3 (3.60-5.2); RDW 12.9 % (11.6-15.6)
[2023-10-19] MEDS: SODIUM CHLORIDE 0.9% 500 ML INFUS.BAG IV ONE (15:27)
[2023-10-19] MEDS: ACETAMINOPHEN 1000 MG/100 ML BAG IVPB ONE (15:27)
[2023-10-19 15:28] LABS: WHITE BLOOD COUNT 13.3 K/mm3 (4.0-10.0)
[2023-10-19 15:35] LABS: POTASSIUM 4.1 mmol/L (3.5-5.1)
[2023-10-19 15:37] LABS: CALCIUM 9.3 mg/dL (8.5-10.1)
[2023-10-19 15:38] LABS: ALBUMIN 3.2 g/dl (3.4-5.0); BLOOD UREA NITROGEN 10.1 mg/dL (7-18)
[2023-10-19 15:41] LABS: CREATININE 0.6 mg/dL (0.55-1.3)
[2023-10-19 15:42] LABS: BILIRUBIN,TOTAL 0.3 mg/dL (0.2-1); TOT PROT 7.2 g/dl (6.4-8.2)
[2023-10-19 17:03] LABS: OVALOCYTE 1+
[2023-10-19] MEDS: KETOROLAC TROMETHAMINE 30 MG/1 ML VIAL IM ONE (19:07)
[2023-10-19] MEDS ORDERED: KETOROLAC TROMETHAMINE 30 MG/1 ML VIAL ONE (19:07)
== END 2023-10-19 19:14 | disposition home or self-care (01) ==
LOC: JER 12:47
PROC: 3E0233Z Introduction of Anti-inflammatory into Muscle, Percutaneous Approach (ICD-10-PCS; principal; 2023-10-19)
DX: O03.9 Complete or unspecified spontaneous abortion without complication (principal)
CPT/HCPCS: 36415; 76830-TC; 80053; 84702; 85025; 99284-25

== ENCOUNTER 2023-10-21 16:35 | Emergency (ER) | payer OTHER ==
[2023-10-21 16:42] VITALS: BP 135/78; PULSE 73; RESP 20; TEMP 97.9; BMI 26.4
[2023-10-21] MEDS ORDERED: SODIUM CHLORIDE 1,000 ML IV STA (17:07)
[2023-10-21] MEDS ORDERED: ACETAMINOPHEN 1000 MG/100 ML BAG IVPB ONE (17:07)
[2023-10-21] MEDS ORDERED: ACETAMINOPHEN INJECTION 100 ML IVPB ONE (17:15)
[2023-10-21 17:46] LABS: BASO % 0.7 % (0-2.0); EOS % 2.1 % (0-4.5); HEMATOCRIT 38.8 % (32.4-45.2); LYMPH % 33.8 % (8-40); MCH 28.7 pg (25.7-33.7); MCHC 33.5 g/dl (32.0-36.0); MEAN CELL VOLUME 85.6 fl (80-96); MONO % 10.4 % (3.8-10.2); PLATELET COUNT 373 10^3/uL (134-434); RBC 4.53 M/mm3 (3.60-5.2); RDW 13.1 % (11.6-15.6); WHITE BLOOD COUNT 8.6 K/mm3 (4.0-10.0)
[2023-10-21 17:53] LABS: INR 1.04 (0.83-1.09); PROTHROMBIN TIME (PATIENT) 12.1 SEC (9.7-13.0)
[2023-10-21 17:56] LABS: ACTIVATED PTT 28.9 SECONDS (25.2-36.5)
[2023-10-21 18:08] LABS: POTASSIUM 4.2 mmol/L (3.5-5.1)
[2023-10-21 18:10] LABS: ALBUMIN 3.5 g/dl (3.4-5.0); BLOOD UREA NITROGEN 8.1 mg/dL (7-18); CALCIUM 9.5 mg/dL (8.5-10.1)
[2023-10-21 18:13] LABS: CREATININE 0.7 mg/dL (0.55-1.3)
[2023-10-21 18:15] LABS: BILIRUBIN,TOTAL 0.2 mg/dL (0.2-1); TOT PROT 7.4 g/dl (6.4-8.2)
[2023-10-21] MEDS ORDERED: KETOROLAC TROMETHAMINE 30 MG/1 ML VIAL IVPUSH ONE (18:26)
[2023-10-21 18:44] LABS: HCG,QUALITATIVE URINE Positive
[2023-10-21 18:45] LABS: EPI CELLS 28 /uL (0-25.1); HYALINE CASTS 1 /uL (0-3.1); PH,URINE 5.5 (5.0-8.0); URINE APPEARANCE CLEAR; URINE BACTERIA 457 /uL (0-1359); URINE BILIRUBIN NEGATIVE (NEGATIVE); URINE COLOR YELLOW; URINE GLUCOSE (UA) NEGATIVE (NEGATIVE); URINE KETONE NEGATIVE (NEGATIVE); URINE LEUK ESTERASE NEGATIVE (NEGATIVE); URINE NITRITE NEGATIVE (NEGATIVE); URINE PROTEIN TRACE (NEGATIVE); URINE RBC 680 /uL (0-23.9); URINE UROBILINOGEN 0.2 mg/dL (0.2-1.0); URINE WBC 37 /uL (0-25.8)
[2023-10-21] MEDS ORDERED: KETOROLAC TROMETHAMINE 30 MG/1 ML VIAL ONE (18:48)
== END 2023-10-21 21:42 | disposition home or self-care (01) ==
LOC: JER 16:35
PROC: 3E033NZ Introduction of Analgesics, Hypnotics, Sedatives into Peripheral Vein, Percutaneous Approach (ICD-10-PCS; principal; 2023-10-21)
PROC: 3E0333Z Introduction of Anti-inflammatory into Peripheral Vein, Percutaneous Approach (ICD-10-PCS; 2023-10-21)
PROC: 3E0337Z Introduction of Electrolytic and Water Balance Substance into Peripheral Vein, Percutaneous Approach (ICD-10-PCS; 2023-10-21)
DX: O04.80 (Induced) termination of pregnancy with unspecified complications (principal)
CPT/HCPCS: 36415; 76817-TC; 80053; 81003; 83690; 84702; 84703; 85025; 85610; 85730; 86850; 86900; 86901; 87086; 93005; 93010; 96361; 96374; 96375; 99285-25

== ENCOUNTER 2024-03-24 18:21 | Emergency (ER) | payer OTHER ==
[2024-03-24 18:32] VITALS: BP 107/67; PULSE 98; RESP 18; TEMP 98.3; BMI 30.2
[2024-03-24] MEDS ORDERED: ACETAMINOPHEN INJECTION 100 ML IVPB ONE (20:00)
[2024-03-24] MEDS: SODIUM CHLORIDE 1,000 ML IV STA (20:16)
[2024-03-24] MEDS: ACETAMINOPHEN 1000 MG/100 ML BAG IVPB ONE (20:16)
[2024-03-24 21:09] LABS: BASO % 0.5 % (0-2.0); EOS % 1.5 % (0-4.5); HEMATOCRIT 33.1 % (32.4-45.2); HEMOGLOBIN 11.5 GM/dL (10.7-15.3); LYMPH % 27.4 % (8-40); MCH 28.9 pg (25.7-33.7); MCHC 34.7 g/dl (32.0-36.0); MEAN CELL VOLUME 83.3 fl (80-96); MONO % 11.6 % (3.8-10.2); RBC 3.98 M/mm3 (3.60-5.2); RDW 13.3 % (11.6-15.6); WHITE BLOOD COUNT 9.4 K/mm3 (4.0-10.0)
[2024-03-24 21:28] LABS: ALBUMIN 2.8 g/dl (3.4-5.0); CALCIUM 9.1 mg/dL (8.5-10.1)
[2024-03-24 21:32] LABS: CREATININE 0.4 mg/dL (0.55-1.3)
[2024-03-24 21:33] LABS: BILIRUBIN,TOTAL 0.2 mg/dL (0.2-1); TOT PROT 6.5 g/dl (6.4-8.2)
[2024-03-24 22:24] LABS: ANISOCYTOSIS 1+; MACROCYTOSIS 0
[2024-03-24 22:25] LABS: MEAN PLT VOLUME 8.6 fl (7.5-11.1); PLATELET COUNT 331 10^3/uL (134-434)
== END 2024-03-24 23:05 | disposition home or self-care (01) ==
LOC: JER 18:21
PROC: 3E033NZ Introduction of Analgesics, Hypnotics, Sedatives into Peripheral Vein, Percutaneous Approach (ICD-10-PCS; principal; 2024-03-24)
PROC: 3E0337Z Introduction of Electrolytic and Water Balance Substance into Peripheral Vein, Percutaneous Approach (ICD-10-PCS; 2024-03-24)
DX: O24.419 Gestational diabetes mellitus in pregnancy, unspecified control (principal); O99.352 Diseases of the nervous system complicating pregnancy, second trimester; R51.9 Headache, unspecified; Z3A.16 16 weeks gestation of pregnancy
CPT/HCPCS: 36415; 80053; 82962; 85025; 99284-25; J0131